=== PATIENT | female | born 1945 ===

== ENCOUNTER 2018-02-15 13:18 | Emergency (ER) | payer MEDICARE ==
[2018-02-15 13:18] VITALS: BMI 31.4
[2018-02-15 13:22] VITALS: TEMP 98
[2018-02-15 13:24] VITALS: BP 138/79; PULSE 94; RESP 17; O2SAT 98
--- NOTE | 2018-02-15 13:30 | ED PDOC ---
HPI: General Adult Time Seen by Provider: 02/15/18 13:30 Chief Complaint (Nursing): Rib Injury Chief Complaint (Provider): rib pain History Per: Patient Additional Complaint(s): 72-year-old female presents to emergency Department with pain to left rib area status post fall 2 days ago. Patient was seen yesterday by her guest experience manager who sent her to this hospital to have x-rays of chest and left ribs done. Patient does not know results of x-rays and developed worsening pain today prompting her to come to ED. PMD: Dr. Patterson Past Medical History Reviewed: Historical Data, Nursing Documentation, Vital Signs Vital Signs: Last Vital Signs Temp 98 F 02/15/18 13:24 Pulse 94 H 02/15/18 13:22 Resp 17 02/15/18 13:22 BP 138/79 02/15/18 13:22 Pulse Ox 98 02/15/18 13:30 - Medical History PMH: CAD, HTN, Hypercholesterolemia - Family History Family History: States: No Known Family Hx - Living Arrangements Living Arrangements: Alone - Social History Current smoker - smoking cessation education provided: No Alcohol: None Drugs: Denies - Home Medications Home Medications: Ambulatory Orders Medication Instructions Recorded Amlodipine Besylate 10 mg PO DAILY 10/12/12 Atenolol 50 mg PO DAILY 10/12/12 Hydrochlorothiazide 12.5 mg PO DAILY 10/12/12 Levothyroxine Sodium 25 mcg PO DAILY 10/12/12 [Levothyroxine] Lisinopril 10 mg PO DAILY 10/12/12 Simvastatin 20 mg PO QPM 10/12/12 Clopidogrel Hydrogen Sulfate 75 mg PO DAILY 10/15/12 [Plavix] Lidocaine 5% [Lidoderm] 1 ea TD DAILY #30 patch 02/15/18 - Allergies Allergies/Adverse Reactions: Allergies Allergy/AdvReac Type Severity Reaction Status Date / Time No Known Allergies Allergy Verified 10/12/12 11:34 Review of Systems ROS Statement: Except As Marked, All Systems Reviewed And Found Negative Musculoskeletal: Positive for: Other (left side rib pain s/p fall 2 days ago) Physical Exam - Reviewed Nursing Documentation Reviewed: Yes Vital Signs Reviewed: Yes - Physical Exam Appears: Positive for: Well, Non-toxic, No Acute Distress Skin: Positive for: Normal Color. Negative for: Rash Eye Exam: Positive for: Normal appearance Cardiovascular/Chest: Positive for: Regular Rate, Rhythm, Other (Tenderness along the left costal margin with ecchymosis noted, no palpable bony deformity) Respiratory: Positive for: Normal Breath Sounds. Negative for: Wheezing, Respiratory Distress Gastrointestinal/Abdominal: Positive for: Other (Nontender abdomen, no rebound, guarding or distention) Back: Positive for: L CVA Tenderness. Negative for: R CVA Tenderness Extremity: Positive for: Normal ROM Neurologic/Psych: Positive for: Alert, Oriented - ECG Interpretation Of ECG: Normal sinus rhythm 76 bpm, no acute changes, reviewed by PA and ED attending. O2 Sat by Pulse Oximetry: 98 Pulse Ox Interpretation: Normal Medical Decision Making Medical Decision Makin-year-old female with left rib pain status post fall 2 days ago. Plan: EKG Chest x-ray and left rib series obtained yesterday in outpatient radiology were reviewed and official reports demonstrate no acute fracture. Copies of chest x- ray reports. Patient given Tylenol dosing ED along with Lidoderm patch. She was advised to continue with [id number] Tylenol and prescription for Lidoderm patch provided. Advise PMD follow-up in 2-3 days or return to ED any time if acutely worse. Patient also given incentive spirometer. Disposition - Clinical Impression Clinical Impression: Rib contusion - Patient ED Disposition Is Patient to be Admitted: No Counseled Patient/Family Regarding: Studies Performed, Diagnosis, Need For Followup, Rx Given - Disposition Referrals: Larry Patterson MD [Staff Provider] - Disposition: Routine/Home Disposition Time: 13:59 Condition: STABLE Additional Instructions: Take Tylenol every 4-6 hours. Apply patches as directed. Follow-up in 2-3 days with primary doctor or return any time if acutely worse. Prescriptions: Lidocaine 5% [Lidoderm] 1 ea TD DAILY #30 patch Instructions: Bruised Rib (DC), How to Use an Incentive Spirometer Forms: [employer] (Yi)
[2018-02-15] MEDS ORDERED: Lidocaine 5% Patch TD STA (13:49)
[2018-02-15] MEDS ORDERED: Lidocaine 5% Patch TD ONE (13:53)
--- NOTE | 2018-02-15 21:46 | CARD ---
APPROVED REPORT Date of service: 02/15/2018 EKG Measurement Heart [id number] <Conclusion> Normal sinus rhythm Normal ECG
== END 2018-02-15 14:09 | disposition home or self-care (01) ==
LOC: H.ER 13:18
DX: S20.219A Contusion of unspecified front wall of thorax, initial encounter (principal); W19.XXXA Unspecified fall, initial encounter; Y92.89 Other specified places as the place of occurrence of the external cause; E78.00 Pure hypercholesterolemia, unspecified; I10 Essential (primary) hypertension; I25.10 Atherosclerotic heart disease of native coronary artery without angina pectoris